=== PATIENT | female | born 1985 | race Caucasian/White ===

== ENCOUNTER 2017-04-21 15:07 | Day surgery (SDC) | payer OTHER ==
[~2017-04-21 15:07] MED LIST: ALBU90OI INH; CODACE30 PO; Cleocin HCl150 MG PO; HYDACE5 PO; MULVITMINE PO; NAPR500 PO; PENVK500 PO; PROM25 PO; Pseudoephedrine30 MG PO; RXCODACET PO; RXPENVK250 PO; Zithromax250 MG PO
[2017-04-21] MEDS ORDERED: HYDR1TAB94 PO (16:52)
[2017-04-21] MEDS ORDERED: CLEOCIN INJ (16:52)
[2017-04-21] MEDS ORDERED: ACET325 PO (16:54)
[2017-04-21] MEDS ORDERED: IBUP800 PO (16:55)
== END 2017-04-21 17:15 | disposition home or self-care (01) ==
LOC: ATC 15:07
DX: K04.7 Periapical abscess without sinus (principal)
CPT/HCPCS: 96365; 99282

== ENCOUNTER 2017-04-21 16:01 | Emergency (ER) | payer OTHER ==
[2017-04-21] MEDS ORDERED: CLEOCIN INJ (16:52)
[2017-04-21] MEDS ORDERED: HYDR1TAB94 PO (16:52)
[2017-04-21] MEDS ORDERED: ACET325 PO (16:54)
[2017-04-21] MEDS ORDERED: IBUP800 PO (16:55)
== END 2017-04-21 16:30 | disposition left against medical advice (07) ==
LOC: ER 16:01
DX: Z53.21 Procedure and treatment not carried out due to patient leaving prior to being seen by health care provider (principal)

== ENCOUNTER 2017-04-22 00:53 | Day surgery (SDC) | payer OTHER ==
[~2017-04-22 00:53] MED LIST changes: +ACET325 PO; +CLEOCIN INJ; +HYDR1TAB94 PO; +IBUP800 PO
== END 2017-04-22 16:52 | disposition home or self-care (01) ==
LOC: ATC 00:53
DX: K04.7 Periapical abscess without sinus (principal)
CPT/HCPCS: 96365

== ENCOUNTER 2017-04-23 00:17 | Emergency (ER) | payer OTHER ==
[~2017-04-23] VITALS: Ht 162.6 cm; Wt 80.7 kg
== END 2017-04-23 01:34 | disposition home or self-care (01) ==
LOC: ER 00:17
DX: K02.9 Dental caries, unspecified (principal); Z76.89 Persons encountering health services in other specified circumstances; Z88.0 Allergy status to penicillin; F17.200 Nicotine dependence, unspecified, uncomplicated; Z79.899 Other long term (current) drug therapy; Z79.2 Long term (current) use of antibiotics
CPT/HCPCS: 96365; 99282

== ENCOUNTER 2017-04-23 00:32 | Day surgery (SDC) | payer OTHER | END 2017-04-23 16:28 | disposition home or self-care (01) | LOC: ATC 00:32 | DX: L02.91 Cutaneous abscess, unspecified (principal); Z88.0 Allergy status to penicillin | CPT/HCPCS: 96365 ==

== ENCOUNTER 2017-04-23 23:59 | Emergency (ER) | payer OTHER ==
[~2017-04-23] VITALS: Ht 162.6 cm; Wt 84.8 kg
== END 2017-04-24 01:09 | disposition home or self-care (01) ==
LOC: ER 23:59
DX: K04.7 Periapical abscess without sinus (principal)
CPT/HCPCS: 96365; 99282

== ENCOUNTER 2017-04-24 00:31 | Day surgery (SDC) | payer OTHER | END 2017-04-24 16:28 | disposition home or self-care (01) | LOC: ATC 00:31 | DX: K04.7 Periapical abscess without sinus (principal); F17.210 Nicotine dependence, cigarettes, uncomplicated | CPT/HCPCS: 96365 ==

== ENCOUNTER 2017-09-20 23:47 | Emergency (ER) | payer SELFPAY ==
[~2017-09-20] VITALS: Ht 162.6 cm; Wt 81.7 kg
[2017-09-20] MEDS ORDERED: ALBU90OI INH (23:57)
== END 2017-09-21 00:42 | disposition home or self-care (01) ==
LOC: ER 23:47
DX: S01.81XA Laceration without foreign body of other part of head, initial encounter (principal); W22.8XXA Striking against or struck by other objects, initial encounter; Z88.0 Allergy status to penicillin; F17.200 Nicotine dependence, unspecified, uncomplicated
CPT/HCPCS: 12013; 99282

== ENCOUNTER 2018-11-17 11:43 | Emergency (ER) | payer OTHER ==
[~2018-11-17] VITALS: Ht 165.1 cm; Wt 77.1 kg
[2018-11-17 12:13] LABS: BASOPHILS ABSOLUTE AUTO 0.04 K/mm3 (0.00-0.23); BASOPHILS PERCENT AUTO 0 % (0-2); EOSINOPHILS ABSOLUTE AUTO 0.07 K/mm3 (0.00-0.68); EOSINOPHILS PERCENT AUTO 1 % (0-6); Hemoglobin 13.6 g/dL (11.5-16.0); IMMATURE GRAN ABSOLUTE AUTO 0.03 K/mm3 (0.00-0.10); IMMATURE GRAN PERCENT AUTO 0 % (0-1); LYMPHOCYTES ABSOLUTE AUTO 1.29 K/mm3 (0.84-5.20); LYMPHOCYTES PERCENT AUTO 12 % (21-46); MONOCYTES ABSOLUTE AUTO 0.83 K/mm3 (0.16-1.47); MONOCYTES PERCENT AUTO 8 % (4-13); Mean Corpuscular HGB 31.6 pg (26.0-34.0); Mean Corpuscular HGB Conc 33.2 g/dL (31.5-36.5); Mean Corpuscular Volume 95 fL (80-100); NEUTROPHILS ABSOLUTE AUTO 8.14 K/mm3 (1.96-9.15); NEUTROPHILS PERCENT AUTO 78 % (41-73); Platelet Count 224 K/mm3 (150-400); RDW Coefficient Variation 13.2 % (11.7-14.2)
[2018-11-17 12:40] LABS: Alanine Aminotransfer (ALT/SGP 18 U/L (12-78); Albumin, Blood 4.2 g/dL (3.4-5.0); Albumin/Globulin Ratio 1.4 (0.8-1.8); Alk Phos 61 U/L (50-136); Anion Gap 3 mmol/L (6-16); Aspartate Aminotrans (AST/SGOT 12 U/L (12-37); Bilirubin, Total 0.7 mg/dL (0.1-1.0); Blood Urea Nitrogen 12 mg/dL (8-24); Bun/Creatinine Ratio 18.1 (12.0-20.0); CO2, Blood 27 mmol/L (21-32); Calcium, Blood 8.9 mg/dL (8.5-10.1); Chloride, Blood 111 mmol/L (98-108); Creatinine, Blood 0.66 mg/dL (0.40-1.00); Globulin, Blood 3.1 g/dL (2.2-4.0); Glomerular Filtration Rate >60 (60-); Glucose, Blood 97 mg/dL (70-99); Potassium, Blood 3.5 mmol/L (3.5-5.5); Sodium, Blood 141 mmol/L (136-145); Total Protein, Blood 7.3 g/dL (6.4-8.2); Troponin I <0.015 ng/mL (0.000-0.040)
== END 2018-11-17 15:53 | disposition home or self-care (01) ==
LOC: ER 11:43
PROVIDERS: Emergency Medicine
DX: R55 Syncope and collapse (principal); R00.1 Bradycardia, unspecified; F17.200 Nicotine dependence, unspecified, uncomplicated; Z88.0 Allergy status to penicillin
CPT/HCPCS: 36415; 80053; 84484; 85025; 93005; 93010; 99284-25

== ENCOUNTER 2019-12-06 21:18 | Emergency (ER) | payer OTHER ==
[~2019-12-06] VITALS: Ht 162.6 cm; Wt 86.2 kg
[2019-12-06 22:10] LABS: BASOPHILS ABSOLUTE AUTO 0.06 K/mm3 (0.00-0.23); BASOPHILS PERCENT AUTO 1 % (0-2); EOSINOPHILS ABSOLUTE AUTO 0.15 K/mm3 (0.00-0.68); EOSINOPHILS PERCENT AUTO 2 % (0-6); Hematocrit 42.8 % (33.0-51.0); IMMATURE GRAN ABSOLUTE AUTO 0.01 K/mm3 (0.00-0.10); IMMATURE GRAN PERCENT AUTO 0 % (0-1); LYMPHOCYTES ABSOLUTE AUTO 2.59 K/mm3 (0.84-5.20); LYMPHOCYTES PERCENT AUTO 36 % (21-46); MONOCYTES ABSOLUTE AUTO 0.84 K/mm3 (0.16-1.47); MONOCYTES PERCENT AUTO 12 % (4-13); Mean Corpuscular HGB 32.1 pg (26.0-34.0); Mean Corpuscular HGB Conc 32.7 g/dL (31.5-36.5); Mean Corpuscular Volume 98 fL (80-100); Mean Platelet Volume 10.4 fL (9.1-12.4); NEUTROPHILS ABSOLUTE AUTO 3.62 K/mm3 (1.96-9.15); NEUTROPHILS PERCENT AUTO 50 % (41-73); Platelet Count 228 K/mm3 (150-400); RDW Coefficient Variation 12.8 % (11.7-14.2); RDW Standard Deviation 46.3 fL (35.1-46.3); Red Blood Cell Count 4.36 M/mm3 (3.80-5.20); White Blood Cell Count 7.27 K/mm3 (4.00-11.30)
[2019-12-06 22:28] LABS: Alanine Aminotransfer (ALT/SGP 15 U/L (12-78); Albumin/Globulin Ratio 1.2 (0.8-1.8); Alk Phos 61 U/L (50-136); Anion Gap 4 mmol/L (6-16); Aspartate Aminotrans (AST/SGOT 10 U/L (12-37); Bilirubin, Total 0.5 mg/dL (0.1-1.0); Blood Urea Nitrogen 8 mg/dL (8-24); Bun/Creatinine Ratio 9.8 (12.0-20.0); CO2, Blood 25 mmol/L (21-32); Calcium, Blood 8.6 mg/dL (8.5-10.1); Chloride, Blood 112 mmol/L (98-108); Creatinine, Blood 0.81 mg/dL (0.40-1.00); Globulin, Blood 3.3 g/dL (2.2-4.0); Glomerular Filtration Rate >60 (60-); Glucose, Blood 76 mg/dL (70-99); Potassium, Blood 3.3 mmol/L (3.5-5.5); Sodium, Blood 141 mmol/L (136-145); Total Protein, Blood 7.3 g/dL (6.4-8.2)
== END 2019-12-06 23:43 | disposition left against medical advice (07) ==
LOC: ER 21:18
PROVIDERS: Physician Assistant
DX: R22.1 Localized swelling, mass and lump, neck (principal); G43.909 Migraine, unspecified, not intractable, without status migrainosus; Z53.21 Procedure and treatment not carried out due to patient leaving prior to being seen by health care provider
CPT/HCPCS: 36415; 80053; 85025; 99283

== ENCOUNTER → 2024-03-18 | Outpatient (CLI) | payer OTHER | LOC: LAB SHORT 16:09 → LAB 16:09 | DX: R31.29 Other microscopic hematuria (principal) | CPT/HCPCS: 87086 ==